=== PATIENT | male | born 1990 | race African-American/Black ===

== ENCOUNTER → 2021-03-07 | Emergency (ER) | payer OTHER, SELFPAY ==
[~2021-03-07] MED LIST: Boostrix 0.5 ML (Tdap) VIAL ONE; Lidocaine 1% PF 5 ML VIAL ONE
== END ==
LOC: ERS 20:26
DX: S81.811A Laceration without foreign body, right lower leg, initial encounter (principal); W11.XXXA Fall on and from ladder, initial encounter
CPT/HCPCS: 12001; 90471; 90715

== ENCOUNTER 2022-07-10 17:49 | Emergency (ER) | payer SELFPAY | END 2022-07-10 20:43 | disposition home or self-care (01) | LOC: ERS 17:49 | DX: M54.50 Low back pain, unspecified (principal); X50.0XXA Overexertion from strenuous movement or load, initial encounter | CPT/HCPCS: 99283 ==